=== PATIENT | male | born 1940 | race Hispanic/Latino ===

== ENCOUNTER 2023-04-28 08:24 | Day surgery (SDC) | payer OTHER, MEDICARE ==
[~2023-04-28] VITALS: Ht 160 cm; Wt 63.5 kg
[2023-04-28] VITALS (10 sets, daily range): BP systolic 114–138; BP diastolic 48–78; PULSE 48–61; RESP 13–20
[~2023-04-28 08:24] MED LIST: ATOR40TA71 PO; DICY20TA3 PO; DOCU100T PO; DONE5TAB33 PO; FAMO40TA7 PO; FERR-72 PO; FOLI0.8C PO; FOLI0.8T2 PO; FURO20TA4 PO; LEVO50CA4 PO; LINA5TAB PO; MEMA10TA55 PO; ONDA4TAB10 PO; PANT40GR PO; PIOG15TA66 PO; PREG200C29 PO; SERT-438 PO; SUCR1TAB2 PO; TAMS-1 PO
[2023-04-28] MEDS ORDERED: PROPOFOL 10 MG/ML 20ML VIAL IV ONE (10:23)
[2023-04-28] MEDS ORDERED: GLUCAGON 1MG KIT 1 MG ML ONE (10:47)
== END 2023-04-28 12:11 | disposition home or self-care (01) ==
LOC: DAH 08:24 → ENDO 08:24
PROVIDERS: ATTEND Internal Medicine Gastroenterology
DX: D50.9 Iron deficiency anemia, unspecified (principal); K31.811 Angiodysplasia of stomach and duodenum with bleeding; R93.3 Abnormal findings on diagnostic imaging of other parts of digestive tract; K29.70 Gastritis, unspecified, without bleeding; K31.7 Polyp of stomach and duodenum; D13.2 Benign neoplasm of duodenum; D69.8 Other specified hemorrhagic conditions; R93.2 Abnormal findings on diagnostic imaging of liver and biliary tract; K81.0 Acute cholecystitis; D12.6 Benign neoplasm of colon, unspecified; I25.10 Atherosclerotic heart disease of native coronary artery without angina pectoris; I10 Essential (primary) hypertension; E78.00 Pure hypercholesterolemia, unspecified; J45.909 Unspecified asthma, uncomplicated; E11.9 Type 2 diabetes mellitus without complications; I63.9 Cerebral infarction, unspecified; D64.9 Anemia, unspecified; Z82.49 Family history of ischemic heart disease and other diseases of the circulatory system; Z83.3 Family history of diabetes mellitus; Z87.891 Personal history of nicotine dependence; Z79.899 Other long term (current) drug therapy; Z98.49 Cataract extraction status, unspecified eye; Z98.890 Other specified postprocedural states
CPT/HCPCS: 44366; 82948 ×2; J1610; J2704; A4620; A4215 ×2; A4223; A7002; A4222; A4221; A4663; A4216; J7030; A4606; J3490

== ENCOUNTER 2024-07-12 05:39 | Day surgery (SDC) | payer OTHER, MEDICARE ==
[~2024-07-12] VITALS: Ht 154.9 cm; Wt 72.6 kg
[2024-07-12] VITALS (10 sets, daily range): BP systolic 101–156; BP diastolic 44–70; PULSE 51–54; RESP 14–16; TEMP 97.1–97.8
[~2024-07-12 05:39] MED LIST changes: +MEMA10TA21 PO; -MEMA10TA55 PO; +ONDA-243 PO; -ONDA4TAB10 PO
[2024-07-12] MEDS: 0.9%NACL 1000ML 1,000 ML IV ONE (06:49)
[2024-07-12] MEDS ORDERED: proPOFol 10 MG/ML 20ML VIAL IV ONE (07:59)
== END 2024-07-12 09:25 | disposition home or self-care (01) ==
LOC: DAH 05:39 → SUH 05:39
PROVIDERS: ATTEND Internal Medicine Gastroenterology
DX: D50.9 Iron deficiency anemia, unspecified (principal); K31.819 Angiodysplasia of stomach and duodenum without bleeding; K92.2 Gastrointestinal hemorrhage, unspecified; K59.01 Slow transit constipation; K31.84 Gastroparesis; R11.2 Nausea with vomiting, unspecified; R93.2 Abnormal findings on diagnostic imaging of liver and biliary tract; E11.9 Type 2 diabetes mellitus without complications; I25.10 Atherosclerotic heart disease of native coronary artery without angina pectoris; J45.909 Unspecified asthma, uncomplicated; I11.9 Hypertensive heart disease without heart failure; E78.00 Pure hypercholesterolemia, unspecified; Z86.73 Personal history of transient ischemic attack (TIA), and cerebral infarction without residual deficits; Z98.49 Cataract extraction status, unspecified eye; Z79.82 Long term (current) use of aspirin; Z79.01 Long term (current) use of anticoagulants; Z79.899 Other long term (current) drug therapy
CPT/HCPCS: 44369; 82948 ×2; J7030 ×2; J2704; A4615; A4215; A4223; A4657; A4222; A4221; A4663; A4606; 44366; J3490

== ENCOUNTER 2024-11-14 07:34 | Day surgery (SDC) | payer OTHER, MEDICAID ==
[2024-11-14] VITALS (8 sets, daily range): BP systolic 112–137; BP diastolic 46–69; PULSE 50–86; RESP 15–18; TEMP 97.4–97.8
[~2024-11-14] VITALS: Ht 147.3 cm; Wt 69.9 kg
[~2024-11-14 07:34] MED LIST changes: -LEVO50CA4 PO; +LEVO50CA5 PO; -TAMS-1 PO; +TAMS-55 PO
[2024-11-14] MEDS: 0.9%NACL 1000ML 1,000 ML IV ONE (08:30)
[2024-11-14] MEDS ORDERED: CLOP-31 PO (09:01)
[2024-11-14] MEDS ORDERED: ASPI-1005 PO (09:01)
[2024-11-14] MEDS ORDERED: AMLO-257 PO (09:01)
[2024-11-14] MEDS ORDERED: KAPIDEX PO (09:03)
[2024-11-14] MEDS ORDERED: LINZESS PO (09:03)
[2024-11-14] MEDS ORDERED: METO5TAB2 PO (09:09)
[2024-11-14] MEDS ORDERED: proPOFol 10 MG/ML 20ML VIAL IV ONE (11:01)
== END 2024-11-14 12:35 | disposition home or self-care (01) ==
LOC: DAH 07:34 → ENDO 07:34
PROVIDERS: ATTEND Internal Medicine Gastroenterology
DX: D50.9 Iron deficiency anemia, unspecified (principal); K29.50 Unspecified chronic gastritis without bleeding; K31.819 Angiodysplasia of stomach and duodenum without bleeding; I25.10 Atherosclerotic heart disease of native coronary artery without angina pectoris; I10 Essential (primary) hypertension; E78.00 Pure hypercholesterolemia, unspecified; E11.9 Type 2 diabetes mellitus without complications; J45.909 Unspecified asthma, uncomplicated; Z86.73 Personal history of transient ischemic attack (TIA), and cerebral infarction without residual deficits; Z79.82 Long term (current) use of aspirin; Z79.890 Hormone replacement therapy; Z88.8 Allergy status to other drugs, medicaments and biological substances; Z79.899 Other long term (current) drug therapy
CPT/HCPCS: 44360; 82948 ×2; J7030; J2704; A4620; A4215 ×2; A4223; A4222; A4221; A4663; A4606; J3490

== ENCOUNTER 2025-01-02 06:33 | Day surgery (SDC) | payer OTHER, MEDICAID ==
[2025-01-02] VITALS (10 sets, daily range): BP systolic 108–132; BP diastolic 44–62; PULSE 47–60; RESP 14–20; TEMP 97.3–98.1
[~2025-01-02] VITALS: Ht 152.4 cm; Wt 53.5 kg
[~2025-01-02 06:33] MED LIST changes: +AMLO-257 PO; +ASPI-1005 PO; +CLOP-31 PO; -DOCU100T PO; +KAPIDEX PO; +LINZESS PO; +METO5TAB2 PO
[2025-01-02] MEDS: 0.9%NACL 1000ML 1,000 ML IV ONE (06:54)
== END 2025-01-02 12:16 | disposition home or self-care (01) ==
LOC: ENDO 06:33 → DAH 06:33 → ENDO 12:16
PROVIDERS: ATTEND Internal Medicine Gastroenterology
DX: D50.9 Iron deficiency anemia, unspecified (principal); K31.819 Angiodysplasia of stomach and duodenum without bleeding; K29.70 Gastritis, unspecified, without bleeding; R93.3 Abnormal findings on diagnostic imaging of other parts of digestive tract; I12.9 Hypertensive chronic kidney disease with stage 1 through stage 4 chronic kidney disease, or unspecified chronic kidney disease; E11.22 Type 2 diabetes mellitus with diabetic chronic kidney disease; N18.9 Chronic kidney disease, unspecified; K21.9 Gastro-esophageal reflux disease without esophagitis; J45.909 Unspecified asthma, uncomplicated; E78.00 Pure hypercholesterolemia, unspecified; I25.10 Atherosclerotic heart disease of native coronary artery without angina pectoris; Z86.73 Personal history of transient ischemic attack (TIA), and cerebral infarction without residual deficits; Z98.49 Cataract extraction status, unspecified eye; Z79.899 Other long term (current) drug therapy; Z98.890 Other specified postprocedural states
CPT/HCPCS: 44360; 82948 ×2; J7030 ×2; J2704 ×3; A4620; A4215; A4223; A7002; A4222; A4221; A4663; A4606; J3490